=== PATIENT | female | born 1950 | race Caucasian/White ===

== ENCOUNTER → 2020-02-11 | Outpatient (CLI) | payer OTHER | END | disposition home or self-care (01) | LOC: CT 07-29 14:00 → MRI 01-12 14:00 → CT 01-21 13:00 → MRI 01-21 14:00 → CT 12:36 | DX: J32.2 Chronic ethmoidal sinusitis (principal); J32.4 Chronic pansinusitis; M54.5 Low back pain ==

== ENCOUNTER → 2020-10-18 | Outpatient (CLI) | payer OTHER | END | disposition home or self-care (01) | LOC: US 14:02 | PROVIDERS: ATTEND Internal Medicine | DX: R60.0 Localized edema (principal) ==

== ENCOUNTER → 2020-10-20 | Outpatient (CLI) | payer OTHER | END | disposition home or self-care (01) | LOC: MRI 10-04 13:00 → CT 10-04 14:00 → MRI 10-11 15:00 → CT 10-11 16:00 → MRI 14:00 | PROVIDERS: ATTEND Internal Medicine | DX: M47.814 Spondylosis without myelopathy or radiculopathy, thoracic region (principal); M40.204 Unspecified kyphosis, thoracic region; D18.09 Hemangioma of other sites; M53.84 Other specified dorsopathies, thoracic region; K80.20 Calculus of gallbladder without cholecystitis without obstruction; M54.5 Low back pain ==